=== PATIENT | male | born 1955 | race Caucasian/White ===

== ENCOUNTER 2025-05-15 06:45 | Day surgery (SDC) | payer OTHER, SELFPAY ==
[2025-05-10 08:04] LABS: Hematocrit 41.7 % (39.0-52.0); Hemoglobin 14.5 g/dL (13.0-18.0); Mean Corp Hgb Conc. 34.8 g/dL (33.0-37.0); Mean Corpuscular Volume 90.8 fL (80.0-94.0); Platelet Count 239 10^3/uL (130-400); Red Cell Dist. Width 11.8 % (11.5-14.5)
[2025-05-10 08:25] LABS: Blood Urea Nitrogen 20 mg/dl (9-20); Calcium 9.4 mg/dl (8.4-10.2); Carbon Dioxide 26 mmol/L (22-30); Chloride 104 mmol/L (98-107); Glucose 142 mg/dl (70-99); Potassium 4.5 mmol/L (3.5-5.1); Sodium 138 mmol/L (135-145); eGFR > 60.00
[2025-05-10 13:42] VITALS: BMI 33.4
[2025-05-15] VITALS (14 sets, daily range): BP systolic 113–145; BP diastolic 69–93; BMI 33.4
[2025-05-15] MEDS: TYLENOL 1000 MG PO (09:10)
--- NOTE | 2025-05-15 09:11 | W.SUR.PREOP ---
Pre-Operative Surgical Note
-
I have examined this patient prior to the performance of the scheduled procedure.
The patient's condition is unchanged from the time of the current History and
Physical and the patient is able to undergo the scheduled procedure.
[2025-05-15] MEDS: NORMOSOL-R/PLASMALYTE-A 1000 IV (09:28)
[2025-05-15 09:31] LABS: Glucose - Point of Care 130 mg/dl (70-99)
--- NOTE | 2025-05-15 12:27 | W.IMMPOSTOP ---
Addendum entered and electronically signed by Todd Vallejo MD 05/15/25 13:12:
#[id number]
Original Note:
Surgical Immed Post Op Note
-
Primary Surgeon: Tdod Vallejo MD
Assisting Surgeon: Evelyn PINZON
Pre-op Diagnosis: Left inguinal hernia
Post-op Diagnosis: Bilateral inguinal hernias; indirect
Procedure Performed: Robotic assisted laparoscopic TIFFANIE repair bilateral inguinal hernias with mesh; 3D max extra-large mid weight
Anesthesia Type: GETA +0.25% Marcaine
Specimen / Cultures: None
Estimated Blood Loss: 12 mL
Complications: None immediate
Operative Findings: Large bilateral indirect inguinal hernias; 3-1/2 to 4 fingerbreadth defects. Left side large indirect slider containing sigmoid colon and mesentery as well as large amount of herniated preperitoneal and retroperitoneal fat.
Right side large indirect containing preperitoneal/prevesicular fat and sliding configuration as well. Lipomatous contents of inguinal canals removed to facilitate mesh placement. 3D max extra-large mid weight mesh repair x 2.
[2025-05-15 12:37] LABS: Glucose - Point of Care 174 mg/dl (70-99)
[2025-05-15] MEDS: REFRESH EYE DROPS (PF) 1 DROPS OPHTH (16:31)
[2025-05-15] MEDS: ZOFRAN 4 MG IV (16:45)
== END 2025-05-15 17:05 | disposition home or self-care (01) ==
LOC: SDS 06:45
PROVIDERS: ATTENDING PHYSICIAN Surgery; FAMILY PHYSICIAN Hospitalist
DX: K40.20 Bilateral inguinal hernia, without obstruction or gangrene, not specified as recurrent (principal)
CPT/HCPCS: 49650; 36415; 80048; 82962; 85027; 87070; 93005; C1781